=== PATIENT | female | born 1990 | race Caucasian/White ===

== ENCOUNTER 2018-11-26 15:11 | Emergency (ER) | payer OTHER, MEDICAID, SELFPAY ==
[2018-11-26 15:13] VITALS: BP 131/87; PULSE 64; RESP 20; TEMP 37.1; O2SAT 97; BMI 37.5
--- NOTE | 2018-11-26 16:05 | ED.SKABFB ---
HPI - Skin/Abscess/Foreign Bdy <CAT Childers - Last Filed: 11/26/18 19:44> General Chief complaint: Skin/Abscess/Foreign Body Stated complaint: states I think I have a cyst Time Seen by Provider: 11/26/18 15:32 Source: patient Mode of arrival: ambulatory Limitations: no limitations History of Present Illness HPI narrative: Patient is a 28-year-old female former smoker with history of knee pain who presents with chief complaint of ?I think I have a cyst. She states that she was shaving and noticed an ingrown hair that is expanding and getting more painful. She has not taken anything for it. She denies any fevers nausea vomiting or diarrhea. She has never had any abscesses before. She has noticed it for 2 days. Related Data Home Medications Medication Instructions Recorded Confirmed nicotine #0 05/01/16 Previous Rx's Medication Instructions Recorded ibuprofen 600 mg PO Q6HP PRN #30 tab 05/01/16 cephalexin 500 mg PO QID #40 cap 11/26/18 Review of Systems <CAT Childers - Last Filed: 11/26/18 19:44> Review of Systems GENERAL: Denies chills, fatigue, malaise, fever, sweats. HEENT: Denies sinus pain, ear pain, sore throat, difficulty swallowing, dizziness. RESPIRATORY: Denies dyspnea, cough, wheezing, hemoptysis, sputum. CARDIOVASCULAR: Denies chest pain, palpitations, orthopnea, edema, GASTROINTESTINAL: Denies nausea, vomiting, abdominal pain, diarrhea, constipation, melena. : Denies dysuria, frequency, incontinence, hematuria, urinary retention. MUSCULOSKELETAL: denies weakness, joint pain, or bony pain SKIN: See HPI NEUROLOGIC: Denies weakness, headache, numbness, change in speech, confusion, seizures, incoordination. PSYCHIATRIC: No concerning psychosocial issues. 12 point review of systems is negative except for those stated above PFSH <CAT Childers - Last Filed: 11/26/18 19:44> Social History Smoking Status: Former smoker Social History Smoking Status: Former smoker Exam <CAT Childers - Last Filed: 11/26/18 19:44> Narrative Exam Narrative: GENERAL: This is a well-nourished, well-developed patient, in no acute distress HEAD: Atraumatic. Normocephalic. No temporal or scalp tenderness. EYES: Pupils equal round and reactive. Extraocular motions intact. No scleral icterus. No injection or drainage. ENT: Nose without bleeding, purulent drainage or septal hematoma. Throat without erythema, tonsillar hypertrophy or exudate. Uvula midline. Airway patent. NECK: Trachea midline. No JVD or lymphadenopathy. Supple, nontender, no meningeal signs. CARDIOVASCULAR: Regular rate and rhythm RESPIRATORY: Clear to auscultation. Breath sounds equal bilaterally. No wheezes, rales, or rhonchi. GASTROINTESTINAL: Abdomen soft, non-tender, nondistended. No hepato-splenomegaly, or palpable masses. No guarding. EXTREMITIES: No clubbing, cyanosis, or edema. No joint tenderness, effusion, or edema noted. BACK: Nontender without deformity or crepitance. No flank tenderness. NEURO: AOx3. SKIN: 1 cm palpable abscess noted a right labia majora. 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 No exudate. No surrounding erythema. Initial Vital Signs Initial Vital Signs: Vital Signs Temperature 98.8 F 11/26/18 15:13 Pulse Rate 64 11/26/18 15:13 Respiratory Rate 20 11/26/18 15:13 Blood Pressure 131/87 11/26/18 15:13 Pulse Oximetry 97 11/26/18 15:13 <Yokasta Clancy MD - Last Filed: 11/28/18 14:19> Initial Vital Signs Initial Vital Signs: Vital Signs Temperature 98.8 F 11/26/18 15:13 Pulse Rate 64 11/26/18 15:13 Respiratory Rate 20 11/26/18 15:13 Blood Pressure 131/87 11/26/18 15:13 Pulse Oximetry 97 11/26/18 15:13 Course <CULLEN Childers-EKATERINA - Last Filed: 11/26/18 19:44> Vital Signs - 8 hr 11/26/18 15:13 11/26/18 16:22 Temperature 98.8 F 98.2 F Pulse Rate 64 72 Respiratory Rate 20 18 Blood Pressure 131/87 Pulse Oximetry 97 100 <Yokasta Clancy MD - Last Filed: 11/28/18 14:19> Vital Signs - 8 hr 11/26/18 15:13 11/26/18 16:22 Temperature 98.8 F 98.2 F Pulse Rate 64 72 Respiratory Rate 20 18 Blood Pressure 131/87 Pulse Oximetry 97 100 MDM - Skin/Abscess/Foreign Bdy <Jeimy RamosCULLEN pickett- - Last Filed: 11/26/18 19:44> [facility] Narrative Medical decision making narrative: The patient is a 28-year-old female presents with abscess of her labia. Her abscess is very small at this point time, so I discussed trying hot packs as well as antibiotics. Discussed return precautions of fever, vomiting diarrhea or signs of worsening. Encourage follow-up with her primary care in a few days. I did discuss with the patient that though he can try to defer I and D at this point time. She may need in the future. Discussed not removing here in keeping area clean and dry. patient has no questions or concerns upon discharge. Discharge Plan Departure Patient Disposition: Home Clinical Impression: Abscess Discharge Date/Time: 11/26/18 16:23 Interventions: ED Discharge Assessment Last Done: 11/26/18 16:22 Instructions: DI for Skin Abscess Activity Restrictions/Additional Instructions: I am starting on an antibiotic. Please do not remove hair and told this is recovered. Please use warm compresses or use Sitz baths over the next few days. Please monitor for fever vomiting and diarrhea. The re-evaluated by primary care provider if worsening or no improvement. Please come back to the emergency department for any acute concerns. Prescriptions: New cephalexin 500 mg capsule 500 mg PO QID Qty: 40 RF: 0 No Action nicotine 21 MG patch 24 hour Qty: 0 RF: 0 ibuprofen 600 MG tablet 600 mg PO Q6HP PRNQty: 30 RF: 0
[2018-11-26 16:22] VITALS: PULSE 72; RESP 18; TEMP 36.8; O2SAT 100
== END 2018-11-26 16:23 | disposition home or self-care (01) ==
PROVIDERS: Emergency Provider Nurse Practitioner Family
DX: N76.4 Abscess of vulva (principal)
CPT/HCPCS: 99282